=== PATIENT | female | born 1945 | race Hispanic/Latino ===

== ENCOUNTER 2021-06-23 10:08 | Outpatient (CLI) | payer MEDICARE, BC | END 2021-06-23 10:09 | disposition home or self-care (01) | LOC: CSHRAD 10:08 | PROVIDERS: ATTEND Internal Medicine | DX: M25.562 Pain in left knee (principal); M17.0 Bilateral primary osteoarthritis of knee ==

== ENCOUNTER 2022-03-10 11:02 | Outpatient (CLI) | payer MEDICARE, BC | END 2022-03-10 11:03 | disposition home or self-care (01) | LOC: CSHMAMMO 11:02 | PROVIDERS: ATTEND Internal Medicine | DX: Z12.31 Encounter for screening mammogram for malignant neoplasm of breast (principal); Z80.3 Family history of malignant neoplasm of breast | CPT/HCPCS: 77063; 77067 ==

== ENCOUNTER 2022-05-24 10:51 | Outpatient (CLI) | payer MEDICARE, BC | END 2022-05-24 10:52 | disposition home or self-care (01) | LOC: CSHMAMMO 10:51 | PROVIDERS: ATTEND Internal Medicine | DX: Z13.820 Encounter for screening for osteoporosis (principal); M85.89 Other specified disorders of bone density and structure, multiple sites; Z78.0 Asymptomatic menopausal state | CPT/HCPCS: 77080 ==

== ENCOUNTER 2023-03-23 14:42 | Outpatient (CLI) | payer MEDICARE, BC | END 2023-03-23 14:43 | disposition home or self-care (01) | LOC: CSHMAMMO 14:42 | PROVIDERS: ATTEND Internal Medicine | DX: Z12.31 Encounter for screening mammogram for malignant neoplasm of breast (principal); Z80.3 Family history of malignant neoplasm of breast | CPT/HCPCS: 77063; 77067 ==

== ENCOUNTER 2024-04-17 12:17 | Outpatient (CLI) | payer MEDICARE | END 2024-04-17 12:18 | disposition home or self-care (01) | LOC: CSHMAMMO 12:17 | PROVIDERS: ATTEND Internal Medicine | DX: Z12.31 Encounter for screening mammogram for malignant neoplasm of breast (principal); Z80.3 Family history of malignant neoplasm of breast | CPT/HCPCS: 77063; 77067 ==

== ENCOUNTER 2024-07-01 10:54 | Outpatient (CLI) | payer MEDICARE | END 2024-07-01 10:55 | disposition home or self-care (01) | LOC: CSHMAMMO 10:54 | PROVIDERS: ATTEND Internal Medicine | DX: Z78.0 Asymptomatic menopausal state (principal); M85.89 Other specified disorders of bone density and structure, multiple sites | CPT/HCPCS: 77080 ==